=== PATIENT | male | born 1970 ===

== ENCOUNTER 2021-11-09 07:06 | Day surgery (SDC) | payer OTHER ==
[~2021-11-09] VITALS: Ht 177.8 cm; Wt 88.0 kg
[~2021-11-09 07:06] MED LIST: BUSPAR PO; CLONAZEPAM0.5 MG PO; LAMICTAL ODT50 MG PO; SYNTHROID100 MCG PO
== END 2021-11-09 18:15 | disposition home or self-care (01) ==
LOC: CIR.AMB 07:06 → SURG 07:06 → O/R 07:06 → EDSTATUS 07:15 → SURG 07:15 → CIR.AMB 18:15 → O/R 18:15
PROVIDERS: ATTEND Specialist
DX: D17.1 Benign lipomatous neoplasm of skin and subcutaneous tissue of trunk (principal); Z20.822 Contact with and (suspected) exposure to COVID-19; Z87.891 Personal history of nicotine dependence; E03.9 Hypothyroidism, unspecified